=== PATIENT | female | born 1970 | race Caucasian/White ===

== ENCOUNTER → 2023-07-16 16:23 | Outpatient (REF) | payer OTHER, SELFPAY | LOC: WDC 16:23 | PROVIDERS: ATTENDING PHYSICIAN Registered Nurse; FAMILY PHYSICIAN Family Medicine | DX: Z12.31 Encounter for screening mammogram for malignant neoplasm of breast (principal) | CPT/HCPCS: 77063; 77067 ==

== ENCOUNTER → 2023-08-13 08:52 | Outpatient (REF) | payer OTHER, SELFPAY | LOC: WDC 08:52 | PROVIDERS: ATTENDING PHYSICIAN Registered Nurse; FAMILY PHYSICIAN Family Medicine | DX: R92.8 Other abnormal and inconclusive findings on diagnostic imaging of breast (principal) | CPT/HCPCS: 76642 ==

== ENCOUNTER 2023-09-24 06:34 | Day surgery (SDC) | payer OTHER, SELFPAY ==
--- NOTE | 2023-09-23 11:50 | PTCARENOTE ---
Abn EKG, Dr. Garduno notified, no requests made.
[2023-09-24] VITALS (11 sets, daily range): BP systolic 135–151; BP diastolic 69–80; BMI 27.0
[2023-09-24] MEDS: TYLENOL 1000 MG PO (10:49)
[2023-09-24] MEDS: CELEBREX 200 MG PO (10:49)
[2023-09-24] MEDS: NEURONTIN 300 MG PO (10:49)
[2023-09-24] MEDS: HEPARIN 5000 UNITS SC (10:51)
[2023-09-24] MEDS: NORMOSOL-R 1000 IV (10:51)
[2023-09-24 11:04] LABS: Hematocrit 40.8 % (37.0-47.0); Hemoglobin 14.4 g/dL (12.0-16.0); Mean Corp Hgb Conc. 35.3 g/dL (33.0-37.0); Mean Corpuscular Hgb 29.4 pg (27.0-31.0); Mean Corpuscular Volume 83.4 fL (81.0-99.0); Mean Platelet Volume 9.7 fL (7.4-10.4); Platelet Count 255 10^3/uL (130-400); Red Blood Cell Count 4.89 10^6/uL (4.20-5.40); Red Cell Dist. Width 12.3 % (11.5-14.5); White Blood Cell Count 4.5 10^3/uL (4.8-10.8)
[2023-09-24 11:26] LABS: ALT (SGPT) 18 U/L (0-35); AST (SGOT) 32 U/L (14-36); Albumin 4.6 g/dl (3.5-5.0); Alkaline Phosphatase 74 U/L (38-126); Blood Urea Nitrogen 15 mg/dl (7-17); Calcium 9.8 mg/dl (8.4-10.2); Carbon Dioxide 25 mmol/L (22-30); Chloride 105 mmol/L (98-107); Estimated Creatinine Clearance 89 ml/min; Glucose 103 mg/dl (70-99); Potassium 4.1 mmol/L (3.5-5.1); Sodium 139 mmol/L (135-145); Total Bilirubin 0.9 mg/dl (0.2-1.3); Total Protein 7.3 g/dl (6.3-8.2); eGFR > 60.00
--- NOTE | 2023-09-24 15:23 | OR.RPT ---
Operative Report
Operative Report
Preoperative diagnosis: Endometrial hyperplasia
Postop diagnosis same
Procedure robotic assisted total laparoscopic hysterectomy, bilateral salpingo-oophorectomy, injection of cervix with ICG dye for mapping and identification of sentinel lymph nodes bilateral. Robotic assisted laparoscopic sentinel lymphadenectomy
involving bilateral common iliac region
Surgeon: Alfredo Gunn
Assist: CHRISTOPHER Allen
Anesthesia: General endotracheal intubation and tap block
Estimated blood loss 100 cc
Complications: None
Procedure in detail: This patient was taken to the operating room, she was placed in supine position. General anesthesia was administered and she was intubated without any difficulty. Arms were wrapped and tucked along the patient's side. The
patient was positioned in lithotomy position using yellowfin stirrups. Tap block was performed by anesthesia team. Next she was prepped on the abdomen perineum and vagina. Whaley catheter was inserted for bladder drainage. Patient was draped.
Timeout procedure was completed. She received combination of Ancef and Flagyl for prophylaxis. ICG dye was injected into the cervix at 3 and 9:00 locations essentially bilateral 1 cc at 5 mm and 10 mm deep stations. Attention was turned
abdominally. Veress needle was placed in the umbilicus and CO2 gas was used to insufflate the abdomen to a pressure of 15 mmHg. 8 mm robotic ports were placed 25 minutes centimeters cephalad to symphysis pubis and epigastrium as well as right and
left upper quadrants and right and left lateral abdomen. Air seal system was used. We docked the robotic system with the patient at 28 degree Trendelenburg. Upper abdomen including liver stomach right and left diaphragms right and left paracolic
gutters were visualized and were normal. Omentum was unremarkable. Loops of small bowel was mobilized out of the pelvis. Pelvic washings were collected. There appeared to be some scarring around left ovary as well as anterior cul-de-sac. Right
and left round ligaments were sealed and divided anterior and posterior leaves of the broad ligament were dissected open. Paravesical and pararectal spaces were developed. Both IP ligaments were isolated, the course of the ureters were visualized
and they were kept out of harm's way. We sealed both IP ligaments and then divided them. Tubes and ovaries were left attached to the uterus. Using near infrared lighting we were able to follow channels of lymphatic out of the uterus all the way
up to mid to high common iliac level, the peritoneum over these areas were opened and right and left common iliac sentinel lymph nodes were removed and submitted to pathology. Bladder flap was sharply developed and advanced below the cervical
junction. There was significant adhesions of the bladder to lower uterine segment due to prior as well as bladder procedure. The bladder was subsequently tested and backfilled with 700 cc sterile saline and drained and there was no
leakage or any signs of trauma to detrusor muscle. Uterine arteries were skeletonized sealed and divided circumferential incision was made over the coring until uterus was completely detached. The uterus and cervix were removed through the vagina,
the vaginal cuff was closed with [id number] 0 Vicryl suture incorporating uterosacral ligaments for support bilaterally. Neck STRATAFIX suture was used to close the cuff and 2 directions. The pelvis was irrigated and all operative sites
appear to be hemostatic. We irrigated the vagina and there was no lacerations present we undocked the robotic system and released the pneumoperitoneum. Ports were removed and patient laparoscopic ports skin sites were closed with 4-0 Monocryl in a
subcuticular fashion. Whaley catheter was removed. The patient was awakened extubated and returned back to recovery room in stable awake condition. Counts of laps instruments and needle was correct x 2.
I was present and scrubbed for entire procedure as dictated above
Disposition: To PACU stable awake extubated
[2023-09-24] MEDS: DILAUDID 0.25 MG IV ×2 (15:30→15:54)
== END 2023-09-24 18:29 | disposition home or self-care (01) ==
LOC: SDS 06:34
PROVIDERS: ATTENDING PHYSICIAN Obstetrics & Gynecology Gynecologic Oncology
DX: N80.03 Adenomyosis of the uterus (principal); D25.9 Leiomyoma of uterus, unspecified; N83.8 Other noninflammatory disorders of ovary, fallopian tube and broad ligament; N85.02 Endometrial intraepithelial neoplasia [EIN]
CPT/HCPCS: 58571; 38571; 38900; 88307; 80053; 85027; 86850; 86900; 86901; 88112; 88342